=== PATIENT | female | born 1960 | race Caucasian/White ===

== ENCOUNTER → 2016-05-27 | Outpatient (CLI) | payer BC | LOC: MC.RAD 09:29 | DX: D48.62 Neoplasm of uncertain behavior of left breast (principal) ==

== ENCOUNTER → 2016-06-01 | Outpatient (CLI) | payer BC | LOC: MC.RAD 13:51 | DX: D24.2 Benign neoplasm of left breast (principal) ==

== ENCOUNTER → 2017-04-21 | Outpatient (CLI) | payer BC | LOC: MC.RAD 04-14 13:40 | DX: Z12.31 Encounter for screening mammogram for malignant neoplasm of breast (principal) ==

== ENCOUNTER → 2018-06-15 | Outpatient (CLI) | payer BC | LOC: MC.RAD 13:05 | DX: Z12.31 Encounter for screening mammogram for malignant neoplasm of breast (principal); N63.10 Unspecified lump in the right breast, unspecified quadrant; N63.20 Unspecified lump in the left breast, unspecified quadrant ==

== ENCOUNTER 2019-09-16 08:16 | Emergency (ER) | payer BC ==
[~2019-09-16] VITALS: Ht 160 cm; Wt 65.9 kg
[2019-09-16 08:23] VITALS: TEMP 97.4
[2019-09-16 08:46] LABS: COLLECTION METHOD CLEAN CATCH
[2019-09-16 08:50] LABS: BASO # 0.1 (0.0-0.2); BASO % 0.5 % (0.0-2.0); EOS % 0.3 % (0-4.0); GRAN # 8.9 (1.4-6.5); GRAN % 75.2 % (42.2-75.2); HEMATOCRIT 44.2 % (37.0-47.0); HEMOGLOBIN 14.5 g/dl (12.5-16.0); LYMPH # 1.9 (1.2-3.4); LYMPH % 16.1 % (20.0-51.0); MEAN CELL VOLUME 87 fl (80.0-100.0); MEAN CORPUSCULAR HEMOGLOBIN 28 pg (27.0-31.0); MEAN CORPUSCULAR HGB CONC 33 g/dl (33.0-37.0); MEAN PLATELET VOLUME 10.9 fl (7.4-10.4); MONO # 0.9 (0.1-0.6); MONO % 7.6 % (1.7-9.3); PLATELET COUNT 252 K/mm3 (130-400); RED BLOOD COUNT 5.11 M/mm3 (4.10-5.30); REDCELL DISTRIBUTION WIDTH-CV 12.5 % (11.5-14.5)
[2019-09-16 08:57] LABS: MUCOUS Present /lpf; PH 6 (5-8); SQUAMOUS EPITHELIAL 0-2 /hpf; URINE APPEARANCE Clear; URINE BACTERIA Rare /hpf; URINE BILIRUBIN Negative (NEGATIVE); URINE BLOOD 3+ (NEGATIVE); URINE COLOR Straw; URINE GLUCOSE Negative (NEGATIVE); URINE KETONE Negative (NEGATIVE); URINE LEUKOCYTE ESTERASE Negative (NEGATIVE); URINE NITRATE Negative (NEGATIVE); URINE PROTEIN(semi-quant) Negative (NEGATIVE); URINE RBC >50 /hpf; URINE UROBILINOGEN Negative (NEGATIVE)
[2019-09-16] MEDS ORDERED: SUDAFED 12 HOU120 MG PO (08:57)
[2019-09-16] MEDS ORDERED: LIPITOR 10MG10 MG PO (08:57)
[2019-09-16] MEDS ORDERED: SINGULAIR 110 MG/TAB PO (08:58)
[2019-09-16] MEDS ORDERED: SYNTHROID 0.10.15 MG PO (08:58)
[2019-09-16 09:04] LABS: ALANINE AMINOTRANSFERASE 24 U/L (4-34); ALBUMIN 4.6 gm/dL (3.5-5.0); ALKALINE PHOSPHATASE 84 U/L (50-136); ANION GAP 7 mmol/L (7-16); AST,SGOT 27 U/L (15-37); BILIRUBIN,TOTAL 0.4 mg/dL (0.0-1.0); BLOOD UREA NITROGEN 20 mg/dL (7-17); CALCIUM 9.7 mg/dL (8.4-10.2); CARBON DIOXIDE 25 mmol/L (22-30); CHLORIDE 105 mmol/L (98-107); CREATININE, serum 0.93 (0.52-1.25); GLUCOSE 104 mg/dL (74-106); LIPASE 88 U/L (23-300); SODIUM 137 mmol/L (137-145); TOTAL PROTEIN 8.1 gm/dL (6.4-8.2)
[2019-09-16 09:11] LABS: C-REACTIVE PROTEIN < 0.5 mg/dL (0.0-0.9)
[2019-09-16] MEDS ORDERED: ZOFRAN 4MG T4 MG/TAB PO (10:17)
[2019-09-16] MEDS ORDERED: ULTRAM 50MG TAB50 MG PO (10:17)
[2019-09-16] MEDS ORDERED: NORCO 325 MG-51 TAB PO (10:17)
[2019-09-16 10:51] VITALS: BP 129/70; PULSE 72
== END 2019-09-16 10:45 | disposition home or self-care (01) ==
LOC: COL.ER 08:16
PROVIDERS: Emergency Medicine
DX: N13.2 Hydronephrosis with renal and ureteral calculous obstruction (principal)
CPT/HCPCS: J1885; J2405; J2550; J3010; J7030

== ENCOUNTER → 2019-11-22 | Outpatient (CLI) | payer BC ==
[~2019-11-22] VITALS: Ht 160 cm; Wt 68.6 kg
[~2019-11-22] MED LIST: BYSTOLIC5 MG PO; LIPITOR 10MG10 MG PO; NORCO 325 MG-51 TAB PO; PREMARIN 1.251.25 MG PO; SINGULAIR 110 MG/TAB PO; SUDAFED 12 HOU120 MG PO; SYNTHROID 0.10.15 MG PO; TRICOR 48MG48 MG PO; ULTRAM 50MG TAB50 MG PO; ZOFRAN 4MG T4 MG/TAB PO; ZYRTEC ALLERGY10 MG PO
[2019-11-22 11:02] VITALS: BP 147/99; PULSE 84
== END ==
LOC: COL.CARD 10:43
DX: R07.9 Chest pain, unspecified (principal); E78.00 Pure hypercholesterolemia, unspecified
CPT/HCPCS: A9500

== ENCOUNTER → 2020-04-24 | Outpatient (CLI) | payer BC | LOC: MC.RAD 14:08 | DX: Z12.31 Encounter for screening mammogram for malignant neoplasm of breast (principal); N63.20 Unspecified lump in the left breast, unspecified quadrant; N63.10 Unspecified lump in the right breast, unspecified quadrant ==

== ENCOUNTER → 2020-04-30 | Outpatient (CLI) | payer BC | LOC: MC.RAD 06:57 | DX: N60.02 Solitary cyst of left breast (principal) ==